=== PATIENT | female | born 1960 | race Caucasian/White ===

== ENCOUNTER → 2016-10-08 16:43 | Outpatient (CLI) | payer MEDICARE, MEDICAID ==
[2012-01-18 17:01] VITALS: BMI 18.1
== END | disposition home or self-care (01) ==
LOC: D.MAMMO 14:00
DX: Z12.31 Encounter for screening mammogram for malignant neoplasm of breast (principal)

== ENCOUNTER 2016-11-04 05:17 | Day surgery (SDC) | payer MEDICARE, MEDICAID ==
[2016-11-01 13:04] LABS: HEMATOCRIT 44.7 % (36.0-48.0); HEMOGLOBIN 15.2 g/dL (12-16); MCH 32.4 pg (26.0-34.0); MCV 95.3 fL (80.0-100.0); MEAN PLATELET VOLUME 9.5 fL (7.4-10.4); RBC 4.69 10x6/uL (4.00-5.40); RDW 12.9 % (11.5-14.5); WBC 11.6 10x3/uL (4.8-10.8)
[~2016-11-04] VITALS: Ht 154.9 cm; Wt 41.3 kg
--- NOTE | ~2016-11-04 | OP ---
PATIENT NAME: MINA ZIMMERMAN MEDICAL RECORD: [id number] :64 LOCATION:D.OPS ADMISSION DATE: SURGEON: ZAIDA DENNISON MD DATE OF OPERATION: 11/04/2016 PREOPERATIVE DIAGNOSIS: Olecranon bursitis. POSTOPERATIVE DIAGNOSIS: Olecranon bursitis. PROCEDURE: Excision of olecranon bursitis. SURGEON: Zaida Dennison MD. ANESTHESIA: General. INTRAOPERATIVE COMPLICATIONS: None. SUMMARY OF PATHOLOGIC FINDINGS: Essentially, olecranon bursitis. OPERATIVE SUMMARY IN DETAIL: After obtaining the appropriate preoperative orthopedic surgery consent as well as anesthetic consultation, evaluation and clearance, the patient was brought to the operating room and placed on the operating table in supine position. After a general laryngeal mask was administered, the patient's arm was prepped and draped in a routine sterile fashion. An elliptical incision was made around the small olecranon bursa. It was removed in its entirety. Having completed this, copious irrigation was followed by 4-0 Prolene closure. Sterile dressings were applied. The patient was awakened, taken to recovery room in stable condition. All final needle and sponge counts were correct. TRANSINT:[id number] Voice Confirmation ID: [id number] DOCUMENT ID: [id number] ZAIDA DENNISON MD CC: [id number] DICTATION DATE: 11/04/161725 TORCH STRAIGHTENER: 11/04/162137 [facility] 11/04/16 [facility] [address] [place] [address]
[~2016-11-04 05:17] MED LIST: COMBIVENT RESPIM4 GM INH
[2016-11-04 11:35] VITALS: Ht 154.9 cm; Wt 41.3 kg
[2016-11-04] MEDS ORDERED: HYDROCODONE-APA1 TAB PO (13:48)
--- NOTE | 2016-11-04 16:55 | NUR ---
1540 DRESSED. GIVEN DISCHARGE INFORMATION INCLUDING: RX FOR NORCO10/325, MED REC, ROM EXERCISES FOR ELBOW, POST OP INSTRUCTIONS FOR ELBOW SURGERY SHEET, & [facility] OP D/C INSTRUCTIONS. PT VOICED UNDERSTANDING. TO PRIVATE CAR PER WHEELCHAIR BY Reji TEE R.N.. HOME WITH AUNT. Yancy DODGE R.N.
== END 2016-11-04 15:40 | disposition home or self-care (01) ==
LOC: D.OPS 05:17 → D.PAN 16:15
PROVIDERS: Anesthesiology
DX: M70.22 Olecranon bursitis, left elbow (principal); Z01.812 Encounter for preprocedural laboratory examination

== ENCOUNTER 2018-01-02 14:31 | Emergency (ER) | payer OTHER, MEDICAID ==
[~2018-01-02] VITALS: Ht 154.9 cm; Wt 40.9 kg
[~2018-01-02 14:31] MED LIST changes: +HYDROCODONE-APA1 TAB PO
[2018-01-02 14:38] VITALS: Ht 154.9 cm; Wt 40.9 kg
[2018-01-02] MEDS ORDERED: COMBIVENT RESPIM4 GM INH (14:39)
[2018-01-02 15:14] LABS: BASOPHILS 0.1 % (0-2); EOSINOPHILS 0.3 % (0-7); HEMOGLOBIN 14.4 g/dL (12-16); IMMATURE GRANULOCYTES 0.3 % (0-5); LYMPHOCYTES 32.4 % (15-50); MCH 31.6 pg (26.0-34.0); MCHC 34.3 g/dL (31.0-37.0); MCV 92.1 fL (80.0-100.0); MEAN PLATELET VOLUME 9.2 fL (7.4-10.4); MONOCYTES 6.6 % (2-11); NEUTROPHILS 60.3 % (40-80); RBC 4.56 10x6/uL (4.00-5.40); WBC 10.6 10x3/uL (4.8-10.8)
[2018-01-02 15:15] LABS: PLATELET COUNT 231 10x3/uL (130-400)
[2018-01-02 15:25] LABS: APTT 33.4 SECONDS (22.8-39.4); INR 1.07 (0.85-1.17); PROTIME 13.5 SECONDS (11.6-15.0)
[2018-01-02 15:26] LABS: D-DIMER-QUANTITATIVE 0.38 ug/mLFEU (0.20-0.54)
[2018-01-02 15:31] LABS: ALBUMIN 3.7 g/dL (3.4-5.0); ALKALINE PHOSPHATASE 66 U/L (46-116); ALT (SGPT) 16 U/L (10-68); BILIRUBIN - TOTAL 0.41 mg/dL (0.2-1.3); CALC OSMOLALITY 279 mosm/kg (275-300); CALCIUM 9.7 mg/dL (8.5-10.1); CARBON DIOXIDE 27.4 mmol/L (21.0-32.0); CHLORIDE - SERUM 104 mmol/L (98-107); CREATININE - SERUM 0.6 mg/dL (0.6-1.3); GLUCOSE 107 mg/dL (74-106); POTASSIUM - SERUM 4.8 mmol/L (3.5-5.1); PROTEIN - SERUM 7.5 g/dL (6.4-8.2); SODIUM 141 mmol/L (136-145); UREA NITROGEN 11 mg/dL (7-18); eGFR NON AFRICAN AMERICAN > 90 mL/min (90-120)
[2018-01-02 15:42] LABS: CKMB 0.8 U/L (0.0-3.6); CREATINE KINASE 75 UL (21-215); MAGNESIUM - SERUM 1.9 mg/dL (1.8-2.4)
[2018-01-02 15:44] LABS: TROPONIN-I < 0.017 ng/mL (0.000-0.060)
[2018-01-02 17:00] VITALS: BP 121/74
== END 2018-01-02 18:18 | disposition home or self-care (01) ==
LOC: D.ER 14:31
PROVIDERS: Family Medicine
DX: R07.9 Chest pain, unspecified (principal); J44.9 Chronic obstructive pulmonary disease, unspecified; I25.10 Atherosclerotic heart disease of native coronary artery without angina pectoris; F17.200 Nicotine dependence, unspecified, uncomplicated

== ENCOUNTER → 2018-12-26 10:00 | Outpatient (CLI) | payer MEDICARE, MEDICAID ==
[2018-01-02 14:38] VITALS: BMI 17.0
== END | disposition home or self-care (01) ==
LOC: D.MAMMO 10:00
PROVIDERS: ATTEND Family Medicine
DX: Z12.31 Encounter for screening mammogram for malignant neoplasm of breast (principal)